=== PATIENT | female | born 1995 | race Two or more races ===

== ENCOUNTER → 2019-07-01 | Outpatient (REF) | payer BC ==
[2019-07-01 15:26] LABS: CHLAMYDIA DNA AMPLIFICATION NEGATIVE (NEGATIVE); GC DNA AMPLIFICATION NEGATIVE (NEGATIVE)
== END ==
LOC: M LAB REF 12:11
PROVIDERS: ATTEND Physician Assistant
DX: R21 Rash and other nonspecific skin eruption (principal)

== ENCOUNTER → 2022-06-21 | Outpatient (REF) | payer BC | LOC: M SFHCWAGY 09:45 | PROVIDERS: ATTEND Obstetrics & Gynecology | DX: Z34.93 Encounter for supervision of normal pregnancy, unspecified, third trimester (principal) ==

== ENCOUNTER → 2022-06-27 | Outpatient (CLI) | payer BC ==
[2022-06-27 18:41] LABS: HEMATOCRIT 33.5 % (36.0-47.0); HEMOGLOBIN 10.5 g/dl (12.0-15.5); MEAN CORPUSCULAR HEMOGLOBIN 27.8 pg (27.0-33.0); MEAN CORPUSCULAR HGB CONC 31.3 g/dl (32.0-36.5); MEAN CORPUSCULAR VOLUME 88.6 fl (80.0-96.0); PLATELET COUNT, AUTOMATED 263 10^3/uL (150-450); RED BLOOD COUNT 3.78 10^6/uL (4.00-5.40); WHITE BLOOD COUNT 8.4 10^3/uL (4.0-10.0)
[2022-06-27 19:27] LABS: TOTAL PROTEIN,RANDOM URINE 27.3 MG/DL (0.0-12.0)
[2022-06-27 19:52] LABS: ALT/SGPT 12 U/L (12-78); BILIRUBIN,TOTAL 0.4 MG/DL (0.2-1.0); GLOMERULAR FILTRATION RATE > 60.0 (>60); LDH LACTATE DEHYDROGENASE 177 U/L (84-246); URIC ACID 4.7 MG/DL (2.6-6.0)
== END ==
LOC: M PLALAB 14:42
PROVIDERS: ATTEND Obstetrics & Gynecology
DX: O16.3 Unspecified maternal hypertension, third trimester (principal); Z3A.00 Weeks of gestation of pregnancy not specified

== ENCOUNTER 2022-06-29 13:29 | Outpatient (CLI) | payer BC ==
[~2022-06-29] VITALS: Ht 160 cm; Wt 79.8 kg
[2022-06-29] VITALS (8 sets, daily range): BP systolic 111–130; BP diastolic 74–92
[2022-06-29] MEDS ORDERED: ONDA8TAB8 PO (13:48)
[2022-06-29] MEDS ORDERED: HOME MED LIST COMPLETE! XX SCH (13:50)
== END 2022-06-29 16:06 | disposition home or self-care (01) ==
LOC: M LDO 13:29
PROVIDERS: ATTEND Obstetrics & Gynecology
DX: O13.3 Gestational [pregnancy-induced] hypertension without significant proteinuria, third trimester (principal); Z3A.37 37 weeks gestation of pregnancy
CPT/HCPCS: 59025; G0463

== ENCOUNTER 2022-07-04 14:46 | Inpatient (IN) | payer BC ==
[2022-07-04] VITALS (23 sets, daily range): BP systolic 107–156; BP diastolic 70–107
[~2022-07-04] VITALS: Ht 160 cm; Wt 79.1 kg
[~2022-07-04 14:46] MED LIST: ONDA8TAB8 PO
[2022-07-04 15:59] LABS: HEMATOCRIT 32.3 % (36.0-47.0); HEMOGLOBIN 10.4 g/dl (12.0-15.5); MEAN CORPUSCULAR HEMOGLOBIN 27.6 pg (27.0-33.0); MEAN CORPUSCULAR HGB CONC 32.2 g/dl (32.0-36.5); MEAN CORPUSCULAR VOLUME 85.7 fl (80.0-96.0); PLATELET COUNT, AUTOMATED 287 10^3/uL (150-450); RED BLOOD COUNT 3.77 10^6/uL (4.00-5.40)
[2022-07-04] MEDS ORDERED: OXYTOCIN INJ 10 UNITS/ML VIAL (J2590) IM PRN (16:25)
[2022-07-04] MEDS ORDERED: CARBOPROST TROMETHAMINE 250 MCG/ML AMP IM PRN (16:25)
[2022-07-04] MEDS ORDERED: miSOPROStol 50MCG 1/2 TABLET PO SCH (16:25)
[2022-07-04] MEDS ORDERED: OXYTOCIN DRIP 30 UNITS in IV 1 EA IV PRN ×4 (16:25)
[2022-07-04] MEDS ORDERED: TRANEXAMIC ACID INJection 1,000 MG in NS 100 ML IV PRN (16:25)
[2022-07-04] MEDS ORDERED: LIDOCAINE 1% MDV 20ML VIAL INFIL PRN (16:25)
[2022-07-04 18:13] LABS: TOTAL PROTEIN,RANDOM URINE 35.5 MG/DL (0.0-12.0)
[2022-07-04 19:26] LABS: ALT/SGPT 9 U/L (12-78); BILIRUBIN,TOTAL 0.3 MG/DL (0.2-1.0); CREATININE FOR GFR 0.68 MG/DL (0.55-1.30); GLOMERULAR FILTRATION RATE > 60.0 (>60); LDH LACTATE DEHYDROGENASE 208 U/L (84-246); URIC ACID 5.3 MG/DL (2.6-6.0)
[2022-07-04] MEDS ORDERED: FENTANYL/ROPIVACAINE/NACL BAG 100 ML EPIDURAL SCH (20:55)
[2022-07-04] MEDS ORDERED: EPIDURAL/PCA KEYS XX PRN (20:55)
[2022-07-04] MEDS ORDERED: ePHEDrine SULFATE 25 MG/5 ML(5MG/ML) SYRINGE IVP PRN (20:55)
[2022-07-04] MEDS ORDERED: diphenhydrAMINE 50MG/ML VIAL IV PRN (20:55)
[2022-07-04] MEDS ORDERED: LR 500 ML IV PRN (20:55)
[2022-07-04] MEDS ORDERED: NALOXONE INJ 0.4MG/1ML VIAL (J2310 PER 1MG) IV PRN (20:55)
[2022-07-04] MEDS ORDERED: ONDANSETRON 4MG 2ML VIAL IV PRN (20:55)
[2022-07-04] MEDS ORDERED: LR 1,000 ML IV SCH (21:35)
[2022-07-04] MEDS ORDERED: OXYTOCIN DRIP 30 UNITS in IV 1 EA IV SCH (21:35)
[2022-07-05] VITALS (13 sets, daily range): BP systolic 110–142; BP diastolic 64–95
[2022-07-05] MEDS ORDERED: ACETAMINOPHEN 500 MG TAB PO PRN (01:55)
[2022-07-05] MEDS ORDERED: IBUPROFEN 800 MG TAB PO PRN (01:55)
[2022-07-05] MEDS ORDERED: DOCUSATE SODIUM 100MG CAPSULE PO PRN (01:55)
[2022-07-05] MEDS ORDERED: IBUPROFEN 600MG TAB PO PRN (01:55)
[2022-07-05] MEDS ORDERED: RHOGAM 300 MCG (1500 IU) INJ (J2790) IM SCH (01:55)
[2022-07-05] MEDS ORDERED: OXYTOCIN DRIP 30 UNITS in IV 1 EA IV SCH (01:55)
[2022-07-05] MEDS ORDERED: DIBUCAINE 1% OINTMENT 30GM TOP PRN (01:55)
[2022-07-05] MEDS ORDERED: ACETAMINOPHEN TAB 650MG DOSE (2X325MG) PO PRN (01:55)
[2022-07-05] MEDS: PRENATAL VITAMINS CHEWABLE TABLET PO SCH (08:07)
[2022-07-05] MEDS ORDERED: SLF 3 ML SYR IV PRN (09:20)
[2022-07-05] MEDS: SLF 3 ML SYR IV SCH ×2 (14:23→22:00)
[2022-07-05] MEDS ORDERED: ACETAMINOPHEN SUSP DYE FREE 160 MG/5 ML UDC PO PRN ×2 (14:40)
[2022-07-05] MEDS: IBUPROFEN 100MG 5ML SUSP UDC DYE FREE PO PRN ×2 (16:10→22:21)
[2022-07-05] MEDS ORDERED: ACETAMINOPHEN 325 MG/10.15 ML UDC PO PRN ×2 (18:48)
[2022-07-06 02:00] VITALS: BP 113/79
[2022-07-06 06:00] VITALS: BP 110/76
[2022-07-06] MEDS: SLF 3 ML SYR IV SCH ×2 (06:00→15:15)
[2022-07-06] MEDS: PRENATAL VITAMINS CHEWABLE TABLET PO SCH (09:00)
[2022-07-06 09:55] VITALS: BP_SYST 131; BP_SYST 143; BP_DIAS 80; BP_DIAS 90
[2022-07-06 14:10] VITALS: BP 146/98
[2022-07-06] MEDS: IBUPROFEN 100MG 5ML SUSP UDC DYE FREE PO PRN ×2 (15:11→23:22)
[2022-07-06 18:10] VITALS: BP 135/91
[2022-07-06 22:00] VITALS: BP 127/90
[2022-07-07] MEDS ORDERED: MEASLES,MUMPS,RUBELLA VACCINE INJ (MMR-II) (90707) SC.IMMUN ONE (09:00)
== END 2022-07-07 00:30 | disposition home or self-care (01) | DRG 560 ==
LOC: M LDI 14:46 → M OBS 07-05 03:53
PROVIDERS: ADMIT Advanced Practice Midwife; ATTEND Advanced Practice Midwife
PROC: 3E033VJ Introduction of Other Hormone into Peripheral Vein, Percutaneous Approach (ICD-10-PCS; 2022-07-04)
PROC: 3E0DXGC Introduction of Other Therapeutic Substance into Mouth and Pharynx, External Approach (ICD-10-PCS; 2022-07-04)
PROC: 10E0XZZ Delivery of Products of Conception, External Approach (ICD-10-PCS; principal; 2022-07-05)
DX: O13.4 Gestational [pregnancy-induced] hypertension without significant proteinuria, complicating childbirth (principal); O69.82X0 Labor and delivery complicated by other cord entanglement, without compression, not applicable or unspecified; Z37.0 Single live birth; Z3A.38 38 weeks gestation of pregnancy; Z14.1 Cystic fibrosis carrier